=== PATIENT | female | born 1980 | race Caucasian/White ===

== ENCOUNTER 2021-03-27 13:59 | Outpatient (CLI) | payer OTHER | END 2021-03-27 14:00 | disposition home or self-care (01) | LOC: CSHLAB 13:59 | PROVIDERS: ATTEND Obstetrics & Gynecology | DX: Z01.812 Encounter for preprocedural laboratory examination (principal); Z20.822 Contact with and (suspected) exposure to COVID-19; D25.9 Leiomyoma of uterus, unspecified | CPT/HCPCS: 84703; 85027; 86850; 86900; 86901; 87635; U0003; U0005 ==

== ENCOUNTER 2021-04-01 08:30 | Day surgery (SDC) | payer OTHER ==
[2021-03-27 16:04] LABS: BHCG - Serum Negative (NEGATIVE); Pregs Control Background? CLEAR/WHITE (CLR/WHITE); Pregs Control Bar Appear? YES (CONTROL BAR)
[2021-03-27 16:42] LABS: Mean Corpuscular HGB CONC 31.5 g/dL (32.0-36.0); Mean Platelet Volume 10.8 fl (7.4-10.4); Platelet Count 345 10x3/uL (150-450); RBC Distribution Width 13.2 % (11.5-14.5); Red Blood Cell (RBC) Count 4.28 10x6/uL (3.90-5.03); White Blood Cell (WBC) Count 9.3 10x3/uL (3.5-10.5)
[2021-03-28 01:47] LABS: SARS-CoV-2 PCR by NAA Not Detected (NotDetected)
[2021-03-31 12:10] VITALS: BMI 27.4
[2021-04-01] MEDS ORDERED: Gabapentin 300 MG CAP ONE (09:04)
[2021-04-01] MEDS ORDERED: Lidocaine 1% MPF 2 ML VIAL ONE (09:05)
[2021-04-01] MEDS ORDERED: CeleCOXIB 100 MG CAP ONE (09:05)
[2021-04-01] MEDS ORDERED: Famotidine/PF 20 mg/2ml Vial ONE (09:05)
[2021-04-01] MEDS ORDERED: Bupivacaine PF 0.5% 30 ML VIAL ONE (10:09)
[2021-04-01] MEDS ORDERED: Midazolam HCl 2 mg/2 ml Vial ONE (10:17)
[2021-04-01] MEDS ORDERED: Dexamethasone 4 mg/ml Vial ONE (10:20)
[2021-04-01] MEDS ORDERED: Ketorolac Tromethamine 15 MG/ML VIAL ONE (10:20)
[2021-04-01] MEDS ORDERED: Metoclopramide HCl 10 MG/2 ML VIAL ONE (10:20)
[2021-04-01] MEDS ORDERED: Ondansetron PF 4 MG/2 ML Vial ONE (10:20)
[2021-04-01] MEDS ORDERED: PROPOFOL 20 ML ONE (10:20)
[2021-04-01] MEDS ORDERED: Fentanyl 100 MCG/2 ML VIAL ONE (10:20)
[2021-04-01] MEDS ORDERED: Rocuronium Bromide 10 MG/ML (10ML VIAL) ONE (10:21)
[2021-04-01] MEDS ORDERED: Lidocaine 2% PF 5 ML VIAL ONE (10:21)
[2021-04-01] MEDS ORDERED: PHENYLEPHRINE-NS 100 MCG/ML 10 ML SYRINGE ONE ×2 (11:12→12:31)
[2021-04-01] MEDS ORDERED: EPINEPHrine 1 MG/10 ML Abboject SYRINGE ONE (11:31)
[2021-04-01] MEDS ORDERED: Meperidine HCl/PF 25 MG/ML VIAL ONE (12:49)
[2021-04-01] MEDS ORDERED: traMADol HCl 50 MG TAB PO PRN (13:04)
[2021-04-01] MEDS ORDERED: HYDROcodone/Acetaminophen 5/325 mg Tablet PO PRN ×2 (13:04)
[2021-04-01] MEDS ORDERED: Zolpidem Tartrate 5 MG TAB PO PRN (13:04)
[2021-04-01] MEDS ORDERED: Bisacodyl 10 MG SUPP PR PRN (13:04)
[2021-04-01] MEDS ORDERED: Morphine 4 MG/ML VIAL SLOW IVP PRN (13:04)
[2021-04-01] MEDS ORDERED: diphenhydrAMINE 25 MG CAP PO PRN (13:04)
[2021-04-01] MEDS ORDERED: Simethicone Chewable 80 MG TAB PO PRN (13:04)
[2021-04-01] MEDS ORDERED: Ondansetron PF 4 MG/2 ML Vial IVP PRN (13:04)
[2021-04-01] MEDS ORDERED: Morphine 2 MG/ML VIAL SLOW IVP PRN (13:04)
[2021-04-01] MEDS ORDERED: Promethazine HCl 25 MG/ML VIAL IM PRN (13:04)
[2021-04-01] MEDS ORDERED: Sodium Chloride 0.9% 1,000 ML IV SCH (13:15)
[2021-04-01] MEDS ORDERED: HYDROcodone/Acetaminophen 5/325 mg Tablet ONE (14:47)
[2021-04-01] MEDS ORDERED: Ketorolac Tromethamine 30 MG/ML VIAL IVP SCH (18:00)
[2021-04-02] MEDS ORDERED: Ibuprofen 800 MG TAB PO SCH (06:00)
[2021-04-02] MEDS ORDERED: Multivitamin W/ Minerals 1 TAB PO SCH (09:00)
[2021-04-02] MEDS ORDERED: Escitalopram Oxalate 20 mg Tablet PO SCH (09:00)
== END 2021-04-01 17:00 | disposition home or self-care (01) ==
LOC: CSHSDC 08:30
PROVIDERS: ATTEND Obstetrics & Gynecology
PROC: 0UT74ZZ Resection of Bilateral Fallopian Tubes, Percutaneous Endoscopic Approach (ICD-10-PCS; principal; 2021-04-01)
PROC: 0UT94ZZ Resection of Uterus, Percutaneous Endoscopic Approach (ICD-10-PCS; principal; 2021-04-01)
DX: D25.9 Leiomyoma of uterus, unspecified (principal); N72 Inflammatory disease of cervix uteri; Z87.891 Personal history of nicotine dependence; Z79.899 Other long term (current) drug therapy; Z88.1 Allergy status to other antibiotic agents
CPT/HCPCS: 36415; 84703; 85027; 86850; 86900; 86901; 87635; 88307; J0171; J0690; J1100; J1885; J2001; J2175; J2250; J2405; J2704; J2765; J3010; S0020; S0028; U0003; U0005

== ENCOUNTER 2022-10-29 15:21 | Outpatient (CLI) | payer OTHER | END 2022-10-29 15:22 | disposition home or self-care (01) | LOC: CSHMAMMO 15:21 | PROVIDERS: ATTEND Family Medicine | DX: Z12.31 Encounter for screening mammogram for malignant neoplasm of breast (principal) | CPT/HCPCS: 77063; 77067 ==

== ENCOUNTER 2025-07-24 14:16 | Outpatient (CLI) | payer BC | END 2025-07-24 14:17 | disposition home or self-care (01) | LOC: CSHMAMMO 14:16 | PROVIDERS: ATTEND Obstetrics & Gynecology | DX: N63.21 Unspecified lump in the left breast, upper outer quadrant (principal) | CPT/HCPCS: G0279 ==